=== PATIENT | male | born 1950 | race Caucasian/White ===

== ENCOUNTER 2021-02-26 03:59 | Emergency (ER) | payer MEDICARE ==
[~2021-02-26 03:59] MED LIST: ALTACE2.5 MG PO; ASPIR 8181 MG PO; IMDUR 30MG TABL30 MG PO; LASIX20 MG PO; LEVAQUIN750 MG PO; LEXAPRO 10MG TA10 MG PO; LIPITOR40 MG PO; LOPRESSOR25 MG PO; PLAVIX75 M1 PO; PREDNISONE 20MG20 MG PO; SYMBICORT 80-10.2 GM INH; VENTOLIN (2.5 MG/3 M INH
[2021-02-26 04:36] LABS: BASOPHIL 0.7 % (0-2); BILIRUBIN NEGATIVE (NEGATIVE); BLOOD NEGATIVE Ery/uL (NEGATIVE); CLARITY CLEAR (CLEAR); COLOR YELLOW (YELLOW); EOSINOPHIL 4.5 % (0-7); GLUCOSE (U) NORMAL (NORMAL); HCT 41.5 % (42.0-52.0); HGB 13.8 g/dl (13.2-18.0); LEUKOCYTES NEGATIVE Leu/uL (NEGATIVE); LYMPHOCYTE 30.6 % (15-48); MCH 32.9 pg (25.0-31.0); MCHC 33.3 g/dL (32.0-36.0); MONOCYTE 9.4 % (0-12); MPV 11.2 fL (6.0-9.5); NEUTROPHIL 54.7 % (41-80); NITRITE NEGATIVE (NEGATIVE); NRBC 0; PLT 166 K/uL (150-400); PROTEIN NEGATIVE (NEGATIVE); RBC 4.19 M/uL (4.70-6.00); UROBILINOGEN 0.2 mg/dL (0.2-1.0); WBC 7.6 K/uL (4.0-10.5)
[2021-02-26 04:56] LABS: ALBUMIN 3.5 g/dL (3.4-5.0); BILIRUBIN - TOTAL 0.4 mg/dL (0.2-1.0); BUN/CREAT RATIO (CALC) 32.1 RATIO; CREATININE 0.81 mg/dL (0.67-1.17); GLOBULIN (CALCULATION) 3.9 g/dL; POTASSIUM 3.9 mmol/L (3.5-5.1); TOTAL PROTEIN 7.4 g/dL (6.4-8.2)
== END 2021-02-26 05:51 | disposition home or self-care (01) ==
LOC: FER 03:59
PROVIDERS: Emergency Medicine
DX: R42 Dizziness and giddiness (principal); I10 Essential (primary) hypertension; I25.10 Atherosclerotic heart disease of native coronary artery without angina pectoris; J44.9 Chronic obstructive pulmonary disease, unspecified; F17.200 Nicotine dependence, unspecified, uncomplicated; Z88.0 Allergy status to penicillin; Z79.899 Other long term (current) drug therapy; Z79.82 Long term (current) use of aspirin; Z95.0 Presence of cardiac pacemaker; Z95.5 Presence of coronary angioplasty implant and graft
CPT/HCPCS: 36415; 71045; 80053; 81003; 84484; 85025; 93005